=== PATIENT | female | born 1980 | race Two or more races ===

== ENCOUNTER 2021-10-05 10:27 | Outpatient (REF) | payer OTHER, SELFPAY ==
[2021-10-05 11:04] LABS: MANUAL DIFF FLAG NO
[2021-10-05 11:26] LABS: Basophils Absolute Auto 0.1 X10*3/uL (0.0-0.2); Basophils Percent Auto 0.6 % (0-2); Eosinophils Absolute Auto 0.1 X10*3/uL (0.0-0.4); Eosinophils Percent Auto 1.2 % (0-4); Hematocrit 36.4 % (37.0-47.0); Hemoglobin 11.2 g/dl (12.0-16.0); Imm Gran Abs Auto 0.07 X10*3/uL (0.00-0.03); Imm Gran Pct Auto 0.6 % (0.0-0.4); Lymphocytes Absolute Auto 3.2 X10*3/uL (1.2-4.9); Lymphocytes Percent Auto 29.8 % (20-40); Mean Corpuscular HGB Conc 30.8 g/dl (31.0-35.0); Mean Corpuscular Hemoglobin 23.3 pg (27.0-33.0); Mean Corpuscular Volume 75.7 fL (80.0-98.0); Mean Platelet Volume 10.8 fL (9.4-12.3); Monocytes Absolute Auto 0.7 X10*3/uL (0.1-1.2); Monocytes Percent Auto 6.1 % (2-11); Neutrophils Absolute Auto 6.7 x10*3/uL (2.0-8.3); Neutrophils Percent Auto 61.7 % (45-73); Platelet Count 336 X10*3/uL (160-400); Red Blood Count 4.81 X10*6/uL (4.20-5.50); Red Cell Distribution Width 15.3 % (11.0-16.0); White Blood Count 10.9 X10*3/uL (4.8-10.8)
[2021-10-05 11:34] LABS: Estimated Average Glucose 134 mg/dL; Hemoglobin A1c % 6.3 %
[2021-10-05 11:57] LABS: Alanine Aminotransferase 43 U/L (0-31); Albumin Level 4.1 g/dL (3.5-5.0); Alkaline Phosphatase 110 U/L (39-117); Anion Gap 12 (12-20); Aspartate Amino Transferase 43 U/L (5-31); Bilirubin Total 0.3 mg/dL (0.0-1.0); Blood Urea Nitrogen 11 mg/dL (9-16); Calcium 9.2 mg/dL (8.4-10.2); Carbon Dioxide 24 mmol/L (22-29); Chloride 106 mmol/L (96-108); Cholesterol 182 mg/dL; Estimated Glomerular Filt Rate > 60; Glucose Random 129 mg/dL (60-115); HDL Cholesterol 39 mg/dL; LDL Cholesterol Calculated 123 mg/dl; Potassium 4.6 mmol/L (3.3-5.1); Sodium 137 mmol/L (135-145); Total Protein 7.5 g/dL (6.5-8.0); Triglycerides 100 mg/dL
[2021-10-05 12:20] LABS: Thyroid Stimulating Hormone 1.45 uIU/mL (0.32-4.0)
== END 2021-10-05 10:28 | disposition home or self-care (01) ==
LOC: HO.LAB 10:27
PROVIDERS: PCP Internal Medicine; Visit Provider Internal Medicine
DX: Z00.01 Encounter for general adult medical examination with abnormal findings (principal); I10 Essential (primary) hypertension; E66.8 Other obesity; H53.8 Other visual disturbances
CPT/HCPCS: 36415; 80053; 80061; 83036; 84443; 85025

== ENCOUNTER → 2022-07-25 15:44 | Outpatient (BNVA) | payer OTHER, SELFPAY | PROVIDERS: PCP Internal Medicine; Visit Provider Physician Assistant Surgical ==

== ENCOUNTER 2023-02-06 12:58 | Outpatient (AMB) | payer OTHER, SELFPAY ==
--- NOTE | 2023-02-06 13:00 | MHC.OFFVISWM ---
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 Her goal is take some weight off. Her sister had LSG with us a few years ago and has been successful. . She reports first being concerned about her weight one year ago.. She has tried multiple methods of weight loss including protein shakes without permanent results. She lives with her boyfriend and 4 children. She works 3 days per week, from 5pm - 10:30pm - 2 d/week and the other day form 9pm - 7am. She wakes at: 6am bed at 2-3 am, sleeps 3-4 hours per day. After work sleeps 8 hours/night. Then naps from 9:30 am - 12 MN. Breakfast: 8am - decaf coffee 1 cup with creamer and sugar substitute. 12 pm - leftovers or a sandwich from bakery. Diet Coke Dinner: 5pm - 2 servings spoons rice, beans and fried chicken, vegetables 2d/week. water or Crystal LIght Afer dinner - another Diet Coke 12 am - sandwich with sweetened decaf iced tea Other snacks: Mocha frappe in afternoon Liquids: Soda, no fruit juice, sweetened drinks daily Alcohol intake: a few times per year, tobacco: none, marijuana: none Exercise: treadmill at home, not used for 1 year Fasting blood sugar - 90, during the day below 158. Last mammogram: needs baseline now. Last pap smear: up to date control method: none now. MARTIN: 0 ESS:9 GERD6: QOL:76 PFSH Surgical History No pertinent past surgical history Family History Mother Hypertension High cholesterol Father Diabetes Hypertension Brother No problems noted. Brother No problems noted. Sister No problems noted. Sister Hypertension Sister Hypertension Son Diabetes Son No problems noted. Son No problems noted. Son No problems noted. Daughter No problems noted. Social History (Updated 02/06/23 @ 13:11 by Ivet Kline CMA) Alcohol intake: current Alcohol intake frequency: holidays/special occasions only Patient Tobacco Use Status: Never used Tobacco Physical Exam Vital Signs: Last Vital Signs Temp 96.8 F 02/06/23 13:13 Pulse 99 02/06/23 13:13 BP 125/59 L 02/06/23 13:13 Pulse Ox 97 02/06/23 13:13 Oxygen Delivery Method Room Air 02/06/23 13:13 BMI result Body Mass Index 49.6 Const General: cooperative, no acute distress and well developed Nutritional Appearance: obese Orientation/consciousness: patient oriented x3 HEENT Head: Yes normal to inspection Neck Neck: Yes normal visual inspection Thyroid: Thyroid normal Resp Effort & Inspection: normal respiratory effort Auscultation: clear to auscultation bilaterally Cardio Rate: regular rate Rhythm: regular rhythm Heart sounds: S1 normal heart sound present, S2 normal heart sound present and no murmurs GI Inspection: No distended, Yes Abdominal panniculus present, Yes obesity and Yes striae (all over abdomen) Palpation (GI): Soft to palpation, nontender and no guarding Skin General skin exam: no rashes or lesions noted and other (warm and dry) Wounds: no wounds Hair: normal Neuro General: patient oriented x3 Extrem General: Yes no pedal edema and Yes no calf tenderness Psych Attitude: cooperative Thought process: Normal thought process present Thought content: Normal thought content present Insight: Good insight present (Psych) Judgement: Good judgement present (Psych) Assessment & Plan Assessment & Plan (1) Morbid obesity: Code(s): E66.01 - Morbid (severe) obesity due to excess calories Plan: This is a 42 yo woman with morbid obesity, DM and HTN who will start SWL program to prepare for bariatric surgery. Blood work, h pylori , CXR, ECG, Abd ULS and UGI have been ordered. She is being scheduled for RD and BH initial consultations. She will start SWL classes and watch all classes before her next appt with Ligia. 1. Adequate sleep of 7-8 hours per night discussed, she needs to stop napping, and all caffeien after morning coffee. On the day of her overnight shift will move her sleeping to daytime for 8 hours. 2. Healthy meal plan - stop all sweetened drinks All meals/MR's need to take 20 minutes to complete 8am - coffee with 2% milk and sugar substitute 10 am - protein shake with water or UAM 1 pm - protein shake with water or UAM 5 pm- dinner of 12 forks lean protein, 12 forks vegetable, 1 serving fruit 8pm - protien bar Exercise - start with treadmill every other day for 2 weeks, then increase frequency Now speed 3.0, burn 300 calories - incline medium The importance of avoiding and breast feeding for at least 18 months after bariatric surgery was discussed in the information session and was reinforced today. 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 Will make mammogram appt. Pt will purchase body composition analyzer (recommended list given to patient) and weight herself weekly. Next appt with me in 3 weeks. Text me with any questions and weekly weights. Patient is morbidly obese and is not considered stable at this time.?I spent a total of 60 minutes reviewing/updating records, examining the patient and counseling the patient on weight management as detailed above. (2) HTN (hypertension), benign: Code(s): I10 - Essential (primary) hypertension (3) Diabetes mellitus: Code(s): E11.9 - Type 2 diabetes mellitus without complications Orders: Orders Insulin Today E11.9 - Type 2 diabetes mellitus without complications, E66.01 - Morbid (severe) obesity due to excess calories, I10 - Essential (primary) hypertension, Z01.818 - Encounter for other preprocedural examination Lipid Panel Today E11.9 - Type 2 diabetes mellitus without complications, E66.01 - Morbid (severe) obesity due to excess calories, I10 - Essential (primary) hypertension, Z01.818 - Encounter for other preprocedural examination IRON PROFILE Today E11.9 - Type 2 diabetes mellitus without complications, E66.01 - Morbid (severe) obesity due to excess calories, I10 - Essential (primary) hypertension, Z01.818 - Encounter for other preprocedural examination Vitamin B12 and Folate Today E11.9 - Type 2 diabetes mellitus without complications, E66.01 - Morbid (severe) obesity due to excess calories, I10 - Essential (primary) hypertension, Z01.818 - Encounter for other preprocedural examination Zinc Today E11.9 - Type 2 diabetes mellitus without complications, E66.01 - Morbid (severe) obesity due to excess calories, I10 - Essential (primary) hypertension, Z01.818 - Encounter for other preprocedural examination Comprehensive Met. Panel Today E11.9 - Type 2 diabetes mellitus without complications, E66.01 - Morbid (severe) obesity due to excess calories, I10 - Essential (primary) hypertension, Z01.818 - Encounter for other preprocedural examination Vitamin A Today E11.9 - Type 2 diabetes mellitus without complications, E66.01 - Morbid (severe) obesity due to excess calories, I10 - Essential (primary) hypertension, Z01.818 - Encounter for other preprocedural examination PTHI Today E11.9 - Type 2 diabetes mellitus without complications, E66.01 - Morbid (severe) obesity due to excess calories, I10 - Essential (primary) hypertension, Z01.818 - Encounter for other preprocedural examination H Pylori Breath Test Today E11.9 - Type 2 diabetes mellitus without complications, E66.01 - Morbid (severe) obesity due to excess calories, I10 - Essential (primary) hypertension, Z01.818 - Encounter for other preprocedural examination Hemoglobin A1c Today E11.9 - Type 2 diabetes mellitus without complications, E66.01 - Morbid (severe) obesity due to excess calories, I10 - Essential (primary) hypertension, Z01.818 - Encounter for other preprocedural examination Complete Blood Count Auto Diff Today E11.9 - Type 2 diabetes mellitus without complications, E66.01 - Morbid (severe) obesity due to excess calories, I10 - Essential (primary) hypertension, Z01.818 - Encounter for other preprocedural examination Vitamin B1 Today E11.9 - Type 2 diabetes mellitus without complications, E66.01 - Morbid (severe) obesity due to excess calories, I10 - Essential (primary) hypertension, Z01.818 - Encounter for other preprocedural examination C Reactive Protein Today E11.9 - Type 2 diabetes mellitus without complications, E66.01 - Morbid (severe) obesity due to excess calories, I10 - Essential (primary) hypertension, Z01.818 - Encounter for other preprocedural examination Ferritin Today E11.9 - Type 2 diabetes mellitus without complications, E66.01 - Morbid (severe) obesity due to excess calories, I10 - Essential (primary) hypertension, Z01.818 - Encounter for other preprocedural examination TSH reflex Free T4 Today E11.9 - Type 2 diabetes mellitus without complications, E66.01 - Morbid (severe) obesity due to excess calories, I10 - Essential (primary) hypertension, Z01.818 - Encounter for other preprocedural examination Vitamin D 25-OH Total Today E11.9 - Type 2 diabetes mellitus without complications, E66.01 - Morbid (severe) obesity due to excess calories, I10 - Essential (primary) hypertension, Z01.818 - Encounter for other preprocedural examination US abdomen comp w elastography Today E11.9 - Type 2 diabetes mellitus without complications, E66.01 - Morbid (severe) obesity due to excess calories, I10 - Essential (primary) hypertension, Z01.818 - Encounter for other preprocedural examination XR chest 2V Today E11.9 - Type 2 diabetes mellitus without complications, E66.01 - Morbid (severe) obesity due to excess calories, I10 - Essential (primary) hypertension, Z01.818 - Encounter for other preprocedural examination ECG 12 lead EKG Today E11.9 - Type 2 diabetes mellitus without complications, E66.01 - Morbid (severe) obesity due to excess calories, I10 - Essential (primary) hypertension, Z01.818 - Encounter for other preprocedural examination FL upper GI w air Today E11.9 - Type 2 diabetes mellitus without complications, E66.01 - Morbid (severe) obesity due to excess calories, I10 - Essential (primary) hypertension, Z01.818 - Encounter for other preprocedural examination Referrals Behavioral Health Referral E11.9 - Type 2 diabetes mellitus without complications, E66.01 - Morbid (severe) obesity due to excess calories, I10 - Essential (primary) hypertension, Z01.818 - Encounter for other preprocedural examination Nutrition/Dietitian Referral E11.9 - Type 2 diabetes mellitus without complications, E66.01 - Morbid (severe) obesity due to excess calories, I10 - Essential (primary) hypertension, Z01.818 - Encounter for other preprocedural examination Coding Level of Care Code New Pt Level 5 (69130) Diagnoses Morbid obesity E66.01 HTN (hypertension), benign I10 Diabetes mellitus E11.9
[2023-02-06 13:13] VITALS: BP 125/59; PULSE 99; TEMP 36; O2SAT 97; BMI 49.6
== END 2023-02-06 14:04 | disposition home or self-care (01) ==
PROVIDERS: PCP Internal Medicine; Visit Provider Physician Assistant
DX: E66.01 Morbid (severe) obesity due to excess calories (principal); Z68.42 Body mass index [BMI] 45.0-49.9, adult; I10 Essential (primary) hypertension; E11.9 Type 2 diabetes mellitus without complications
CPT/HCPCS: 99205

== ENCOUNTER → 2023-02-06 12:58 | Outpatient (BNVA) | payer OTHER, SELFPAY | PROVIDERS: PCP Internal Medicine; Visit Provider Physician Assistant | DX: E66.01 Morbid (severe) obesity due to excess calories (principal); I10 Essential (primary) hypertension; E11.9 Type 2 diabetes mellitus without complications; Z68.42 Body mass index [BMI] 45.0-49.9, adult | CPT/HCPCS: 99202 ==

== ENCOUNTER 2023-03-01 11:33 | Outpatient (AMB) | payer OTHER, SELFPAY ==
--- NOTE | 2023-03-01 11:34 | MHC.OFFVISWM ---
Intake VS Expanded 03/01/23 11:47 BP 133/73 Blood Pressure Location Rt brachial Blood Pressure Position Sitting Pulse 110 H Pulse Source Pulse Oximeter Temp 96.6 F L Temperature Source Tympanic Pulse Oximetry 97 Oxygen Delivery Method Room Air Height 5 ft 7 in Weight 315 lb 3.2 oz BMI 49.4 Body Fat % 51.2 Body Fat Mass 161.4 Fat Free Mass 153.6 Visceral Fat Rating 17.0 Body Water % 34.9 Body Water Mass 110.0 Muscle Mass/Score 146.0 Basal Metabolic Rate/Score 2,239 Intake Visit Reasons: (OV) F/U SWL + H Pylori Allergies No Known Allergies Allergy (Verified 03/01/23 11:39) Medication List - Last Reconciled 03/01/23 by Patricia Aguero PA-C lisinopril 20 mg PO DAILY losartan 100 mg PO DAILY metformin 1,000 mg PO BID HPI HPI Comments History of Present Illness Details This is the patients second appt for SWL. Starting weight was 317 lbs on 02/06/23. TBWL is 1.8 lbs. She has not started the meal or exercise programs yet and has not gotten her labs, CXR or ECG done yet. Meal plan: 7am - coffee, black with 3 substitute sugars 10am - Premier powder with water -- not today though 3pm -shepards pie - chicken, mashed potatoes, corn and piña, seltzer 8 pm - an apple 8pm - snack bar 12 MN - tomato with salt and vinegar Exercise plan: none, has treadmill at home Pre op work up completed as follows: SWL classes - appts - 03/11 appts - 03/05 H pylori - today Labs, CXR and ECG - not done yet ULS and UGI - 03/29 and 04/29 Contraception- Depo PRovera - first shot in January [facility] Surgical History No pertinent past surgical history Family History Mother Hypertension High cholesterol Father Diabetes Hypertension Brother No problems noted. Brother No problems noted. Sister No problems noted. Sister Hypertension Sister Hypertension Son Diabetes Son No problems noted. Son No problems noted. Son No problems noted. Daughter No problems noted. Social History (Updated 02/06/23 @ 13:11 by Ivet Kline CMA) Alcohol intake: current Alcohol intake frequency: holidays/special occasions only Patient Tobacco Use Status: Never used Tobacco Assessment & Plan Assessment & Plan (1) Morbid obesity: Code(s): E66.01 - Morbid (severe) obesity due to excess calories Plan: 42 yo woman who seems unsure of what she is suppossed to be doing to follow our SWL program. She states she was not told about SWL classes or purchasing a scale for home use. We discussed that there seems to have been some communication issues at her last appointment and that if she chooses, she could start our program now. She still seemed unsure of what she wanted. I had her write down her meal and exercise plans again today and recommended that she get her labs, ECG and CXR doen today. Purchase a scale and watch at least 4 SWL classses before her appt with Ligia on 03/05. Next appt with me in 3 weeks. Pt seen today with her mother. Patient is morbidly obese and is not considered stable at this time. I spent 30 minutes in total with patient reviewing/updating records, examining the patient and counseling the patient on weight management as detailed above. (2) Diabetes mellitus: Code(s): E11.9 - Type 2 diabetes mellitus without complications (3) HTN (hypertension), benign: Code(s): I10 - Essential (primary) hypertension Plan see above Coding Level of Care Code Est Pt Level 4 (02435) Diagnoses Morbid obesity E66.01 Diabetes mellitus E11.9 HTN (hypertension), benign I10
[2023-03-01 11:47] VITALS: BP 133/73; PULSE 110; TEMP 35.9; O2SAT 97; BMI 49.4
== END 2023-03-01 12:18 | disposition home or self-care (01) ==
PROVIDERS: PCP Internal Medicine; Visit Provider Physician Assistant
DX: E66.01 Morbid (severe) obesity due to excess calories (principal); Z68.42 Body mass index [BMI] 45.0-49.9, adult; E11.9 Type 2 diabetes mellitus without complications; I10 Essential (primary) hypertension
CPT/HCPCS: 99214

== ENCOUNTER 2023-03-01 11:33 | Outpatient (REF) | payer OTHER, SELFPAY ==
--- NOTE | ~2023-03-01 | XR_ITS ---
EXAMINATION: XR CHEST 2 VIEWS CLINICAL INFORMATION: Essential (primary) hypertension. COMPARISON: None. TECHNIQUE: Frontal and lateral views of the chest were obtained. FINDINGS: The heart, great vessels, pulmonary vasculature and mediastinum are normal. The lungs show no focal infiltrate, effusion or pneumothorax. There is no acute osseous abnormality. There is mild thoracic spondylosis. XR/XR chest 2V IMPRESSION: No active cardiopulmonary disease.
--- NOTE | 2023-03-01 12:33 | ECG_ITS ---
Test Reason : HTN Blood Pressure : / mmHG Vent. Rate : 097 BPM Atrial Rate : 097 BPM P-R Int : 150 ms QRS Dur : 082 ms QT Int : 352 ms P-R-T Axes : 029 008 000 degrees QTc Int : 447 ms Normal sinus rhythm Normal ECG No previous ECGs available Referred By: Patricia Aguero Electronically Signed By:MIKE SALAZAR MD
[2023-03-01 12:37] LABS: MANUAL DIFF FLAG NO
[2023-03-01 13:40] LABS: Basophils Absolute Auto 0.1 X10*3/uL (0.0-0.2); Basophils Percent Auto 0.6 % (0-2); Eosinophils Absolute Auto 0.1 X10*3/uL (0.0-0.4); Eosinophils Percent Auto 0.8 % (0-4); Hematocrit 35.7 % (37.0-47.0); Imm Gran Abs Auto 0.05 X10*3/uL (0.00-0.03); Imm Gran Pct Auto 0.4 % (0.0-0.4); Lymphocytes Absolute Auto 3.1 X10*3/uL (1.2-4.9); Lymphocytes Percent Auto 24.8 % (20-40); Mean Corpuscular HGB Conc 30.8 g/dl (31.0-35.0); Mean Corpuscular Hemoglobin 23.9 pg (27.0-33.0); Mean Corpuscular Volume 77.4 fL (80.0-98.0); Mean Platelet Volume 11.1 fL (9.4-12.3); Monocytes Absolute Auto 0.6 X10*3/uL (0.1-1.2); Monocytes Percent Auto 4.7 % (2-11); Neutrophils Absolute Auto 8.6 x10*3/uL (2.0-8.3); Neutrophils Percent Auto 68.7 % (45-73); Platelet Count 350 X10*3/uL (160-400); Red Blood Count 4.61 X10*6/uL (4.20-5.50); Red Cell Distribution Width 14.6 % (11.0-16.0); White Blood Count 12.4 X10*3/uL (4.8-10.8)
[2023-03-01 13:48] LABS: Estimated Average Glucose 148 mg/dL; Hemoglobin A1c % 6.8 % (<6.0)
[2023-03-01 14:46] LABS: Alanine Aminotransferase 65 U/L (0-31); Albumin Level 4.2 g/dL (3.5-5.0); Alkaline Phosphatase 91 U/L (39-117); Anion Gap 13 (12-20); Aspartate Amino Transferase 42 U/L (5-31); Bilirubin Total 0.3 mg/dL (0.0-1.0); Blood Urea Nitrogen 10 mg/dL (9-16); C Reactive Protein 2.81 mg/dL (< or = 0.50); Calcium 9.7 mg/dL (8.4-10.2); Carbon Dioxide 27 mmol/L (22-29); Chloride 101 mmol/L (96-108); Cholesterol 139 mg/dL (<200); Estimated Glomerular Filt Rate > 60; Glucose Random 116 mg/dL (60-115); HDL Cholesterol 35 mg/dL (>40); Iron 41 mcg/dL (30-160); LDL Cholesterol Calculated 81 mg/dL (<100); Percent Iron Saturation 11 % (15-50); Potassium 3.7 mmol/L (3.3-5.1); Sodium 137 mmol/L (135-145); Total Iron Binding Capacity 388 mcg/dL (228-428); Total Protein 8.2 g/dL (6.5-8.0); Triglycerides 117 mg/dL (<150); Unsaturated Iron Binding 347 ug/dL
[2023-03-01 14:51] LABS: Ferritin 36 ng/mL (10-250); Insulin 28 uU/mL (2-29); TSH reflex Free T4 0.92 uIU/mL (0.32-4.0); Vitamin D 25-OH Total 14.9 ng/mL (>30)
[2023-03-01 14:55] LABS: Folate 6.8 ng/mL (> or = 4.0); Vitamin B12 355 pg/mL (200-900)
[2023-03-04 14:03] LABS: H Pylori Breath Test Positive (Negative)
[2023-03-06 04:59] LABS: Vitamin A 33 mcg/dL (38-98)
[2023-03-06 14:59] LABS: Vitamin B1 <6 nmol/L (8-30)
[2023-03-06 17:28] LABS: Zinc 90 mcg/dL (60-130)
== END 2023-03-01 11:34 | disposition home or self-care (01) ==
LOC: HO.XRAY 11:33
PROVIDERS: PCP Internal Medicine; Visit Provider Physician Assistant
DX: Z01.818 Encounter for other preprocedural examination (principal); E66.01 Morbid (severe) obesity due to excess calories; I10 Essential (primary) hypertension; E11.9 Type 2 diabetes mellitus without complications
CPT/HCPCS: 36415; 71046; 80053; 80061; 82306; 82607; 82728; 82746; 83013; 83036; 83525; 83540; 84425; 84443; 84590; 84630; 85025; 86140; 93005; 99211; 99212

== ENCOUNTER → 2023-03-01 12:33 | Outpatient (BNV) | payer OTHER, SELFPAY | PROVIDERS: PCP Internal Medicine; Visit Provider Internal Medicine Cardiovascular Disease | DX: I10 Essential (primary) hypertension (principal); Z01.818 Encounter for other preprocedural examination; E66.01 Morbid (severe) obesity due to excess calories | CPT/HCPCS: 93010 ==

== ENCOUNTER 2023-03-11 10:25 | Outpatient (AMB) | payer OTHER, SELFPAY ==
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
== END 2023-03-11 10:38 | disposition home or self-care (01) ==
LOC: HO.HBST 10:25
PROVIDERS: PCP Internal Medicine; Visit Provider Counselor Mental Health
DX: E66.01 Morbid (severe) obesity due to excess calories (principal); Z01.818 Encounter for other preprocedural examination; E11.9 Type 2 diabetes mellitus without complications
CPT/HCPCS: 90791

== ENCOUNTER → 2023-03-11 10:25 | Outpatient (BNVA) | payer OTHER, SELFPAY | PROVIDERS: PCP Internal Medicine; Visit Provider Counselor Mental Health ==

== ENCOUNTER 2023-04-15 11:52 | Outpatient (REF) | payer OTHER, SELFPAY ==
[2023-04-15 13:47] LABS: Estimated Average Glucose 123 mg/dL; Hemoglobin A1c % 5.9 % (<6.0)
[2023-04-15 13:58] LABS: Alanine Aminotransferase 53 U/L (0-31); Albumin Level 4.1 g/dL (3.5-5.0); Alkaline Phosphatase 100 U/L (39-117); Anion Gap 16 (12-20); Aspartate Amino Transferase 38 U/L (5-31); Bilirubin Total 0.2 mg/dL (0.0-1.0); Blood Urea Nitrogen 15 mg/dL (9-16); Calcium 10.4 mg/dL (8.4-10.2); Carbon Dioxide 26 mmol/L (22-29); Chloride 100 mmol/L (96-108); Cholesterol 168 mg/dL (<200); Estimated Glomerular Filt Rate > 60; Glucose Random 127 mg/dL (60-115); HDL Cholesterol 33 mg/dL (>40); LDL Cholesterol Calculated 112 mg/dL (<100); Potassium 3.9 mmol/L (3.3-5.1); Sodium 138 mmol/L (135-145); Total Protein 8.2 g/dL (6.5-8.0); Triglycerides 117 mg/dL (<150)
[2023-04-15 14:06] LABS: Thyroid Stimulating Hormone 1.77 uIU/mL (0.32-4.0)
== END 2023-04-15 11:53 | disposition home or self-care (01) ==
LOC: HO.10HDL 11:52
PROVIDERS: Visit Provider Internal Medicine
DX: E11.9 Type 2 diabetes mellitus without complications (principal); E78.00 Pure hypercholesterolemia, unspecified; I10 Essential (primary) hypertension
CPT/HCPCS: 36415; 80053; 80061; 83036; 84443

== ENCOUNTER 2023-05-08 15:00 | Outpatient (AMB) | payer OTHER, SELFPAY ==
--- NOTE | 2023-05-08 15:04 | A.OFFVIS_ITS ---
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 I didn't hear from her hectorgin, despite text messages until today. She thinks that the [facility] program will be a better fit for her and has an intake appt there on May 15. Pre op work up completed as follows: SWL classes - 0 BH appts - 03/11, cleared RD appts - 03/05 - no showed H pylori - POSITIVE 03/01 - treated on 03/04 - finished meds. Labs- done CXR NAD ECG -NAD ULS and UGI - 03/29 and 04/29 - missed both appts Contraception- Depo PRovera - first shot in January [facility] Surgical History No pertinent past surgical history Family History Mother Hypertension High cholesterol Father Diabetes Hypertension Brother No problems noted. Brother No problems noted. Sister No problems noted. Sister Hypertension Sister Hypertension Son Diabetes Son No problems noted. Son No problems noted. Son No problems noted. Daughter No problems noted. Social History (Updated 02/06/23 @ 13:11 by Ivet Kline [facility]) Alcohol intake: current Alcohol intake frequency: holidays/special occasions only Patient Tobacco Use Status: Never used Tobacco Assessment & Plan Assessment & Plan (1) Morbid obesity: Code(s): E66.01 - Morbid (severe) obesity due to excess calories Plan: Patient has decided to change to SWL program at [facility]. She does not want to adhere to our meal and exercise plans. I wished her the best of luck and let her know if she changes her mind she can restart with us. Patient is still morbidly obese and is not considered stable at this time. I spent 15 minutes in total speaking with the patient via video conference counseling , reviewing records and charting in patients chart. . Telehealth Telehealth Location of provider rendering services: practice address Location of patient: address on file Patient Identification confirmed using: Name, : Yes Telehealth method: video Patient verbally consented to treatment: Yes Patient verbally consented to billing insurance company: Yes Patient informed of any privacy concerns related to visit: Yes Coding Level of Care Code Tele Est Pt Level 3 (46477) Diagnoses Morbid obesity E66.01
== END 2023-05-08 15:21 | disposition home or self-care (01) ==
LOC: HO.HBS 15:17
PROVIDERS: PCP Internal Medicine; Visit Provider Physician Assistant
DX: E66.01 Morbid (severe) obesity due to excess calories (principal)
CPT/HCPCS: 99213

== ENCOUNTER → 2023-05-08 15:00 | Outpatient (BNVA) | payer OTHER, SELFPAY | PROVIDERS: PCP Internal Medicine; Visit Provider Physician Assistant | DX: E66.01 Morbid (severe) obesity due to excess calories (principal) ==